=== PATIENT | female | born 1960 | race Caucasian/White ===

== ENCOUNTER 2018-06-09 13:08 | Observation (INO) ==
[2018-06-09 13:44] LABS: Baso # (Auto) 0.1 th/mm3 (0.0-0.2); Baso % (Auto) 1.9 % (0.0-2.0); Eos # (Auto) 0.1 th/mm3 (0.0-0.4); Eos % (Auto) 1.3 % (0.0-4.0); Hematocrit 41.2 % (35.0-46.0); Hemoglobin 13.1 gm/dL (11.6-15.3); Lymph # (Auto) 2.5 th/mm3 (1.0-4.8); Lymph % (Auto) 55.4 % (9.0-44.0); Mean Corpuscular HGB Conc 31.8 % (32.0-36.0); Mean Corpuscular Hemoglobin 28.3 pg (27.0-34.0); Mean Corpuscular Volume 88.9 fL (80.0-100.0); Mean Platelet Volume 7.5 fL (7.0-11.0); Mono # (Auto) 0.2 th/mm3 (0.0-0.9); Mono % (Auto) 4.6 % (0.0-8.0); Neut # (Auto) 1.7 th/mm3 (1.8-7.7); Neut % (Auto) 36.8 % (16.0-70.0); Platelet Count 180 th/mm3 (150-450); Red Blood Count 4.64 mil/mm3 (4.00-5.30); Red Cell Distribution Width 13.1 % (11.6-17.2); White Blood Count 4.6 th/mm3 (4.0-11.0)
[2018-06-09 13:56] LABS: Chloride 104 meq/L (98-107); Potassium 3.5 meq/L (3.5-5.1); Sodium 138 meq/L (136-145)
[2018-06-09 13:59] LABS: Albumin 3.9 g/dL (3.4-5.0); Anion Gap 9 meq/L (5-15); Calcium 9.1 mg/dL (8.5-10.1)
[2018-06-09 14:00] LABS: Blood Urea Nitrogen 15 mg/dL (7-18); Glucose,Random 72 mg/dL (74-106)
[2018-06-09 14:02] LABS: Alanine Aminotransferase 28 U/L (10-53)
[2018-06-09 14:03] LABS: Aspartate Aminotransferase 27 U/L (15-37); Glomerular Filtration Rate 51 mL/min (>89)
[2018-06-09 14:05] LABS: Alkaline Phosphatase 70 U/L (45-117); Creatine Kinase 116 U/L (26-192)
[2018-06-09 14:13] LABS: Thyroid Stimulating Hormone 0.318 uIU/mL (0.358-3.740)
[2018-06-09 14:29] LABS: Activated Partial Thrombo Time 24.2 sec (24.3-30.1); INR 1.1 Ratio; Prothrombin Time 11.1 sec (9.8-11.6)
--- NOTE | 2018-06-09 16:02 | ED ---
HPI General Chief complaint: Altered Mental Status Stated complaint: Altered Mental Status History of Present Illness HPI narrative: 58-year-old female history of multiple sclerosis here for evaluation of altered mental status. Patient was brought by EVAC for altered mental status, her sister states that she has been trying to call her but she did not get any response, she stopped by her house this morning, patient open the door for her but patient was "not herself". Patient was not answering the question properly, she was not oriented to time or place when she was evaluated by EVAC. When she arrived in the ER patient was oriented to time and place, confused, lethargic but able to answer questions properly. She has no weakness in her arms or legs, no slurred speech. Side note: Pt sister arrived at the ER, she says that patient was not herself when she saw her this AM, was having " slow response" to her questions, weak, slow gait. No fall or chest pain or SOB. Related Data Home Medications Medication Instructions Recorded Confirmed atorvastatin [Lipitor] 40 mg PO DAILY 06/09/18 06/09/18 baclofen 10 mg PO BID 06/09/18 06/09/18 conjugated estrogens [Premarin] 0.3 mg PO DAILY 06/09/18 06/09/18 cyclobenzaprine 10 mg PO DAILY 06/09/18 06/09/18 dimethyl fumarate [Tecfidera] 240 mg PO BID 06/09/18 06/09/18 gabapentin 300 mg PO TID 06/09/18 06/09/18 prednisone 20 mg PO DAILY 06/09/18 06/09/18 primidone 50 mg PO Q12H 06/09/18 06/09/18 topiramate 300 mg PO DAILY 06/09/18 06/09/18 venlafaxine [Effexor XR] 150 mg PO BID 06/09/18 06/09/18 Allergies Allergy/AdvReac Type Severity Reaction Status Date / Time No Known Allergies Allergy Verified 06/09/18 16:38 Review of Systems ROS: all other systems reviewed are negative [facility] Medical History Medical History Multiple sclerosis (Acute) Surgical history unknown (Acute) Family History Family History Other Hypertension Social History Social History Substance History: No History of Abuse Second Hand Smoke Exposure: No Smoking Status: Former smoker Tobacco Type: Cigarettes How Often Do You Have a Drink Containing Alcohol: Never Recent Travel in [facility] within the Last 8 Weeks: No Recent Out of Country Travel within the Last 8 Weeks: No Immunization History Tetanus Immunization: Unable to Assess Hx Influenza Vaccine This Season: Unable to Assess Exam Narrative Exam Narrative: GENERAL: Alert and 2 no acute distress. SKIN: Focused skin assessment warm/dry. HEAD: Atraumatic. Normocephalic. EYES: Pupils equal and round. No scleral icterus. No injection or drainage. ENT: No nasal bleeding or discharge. Mucous membranes pink and moist. NECK: Trachea midline. No JVD. CARDIOVASCULAR: Regular rate and rhythm. No murmur appreciated. RESPIRATORY: No accessory muscle use. Clear to auscultation. Breath sounds equal bilaterally. GASTROINTESTINAL: Abdomen soft, non-tender, nondistended. Hepatic and splenic margins not palpable. MUSCULOSKELETAL: No obvious deformities. No clubbing. No cyanosis. No edema. NEUROLOGICAL: Awake and alert. No obvious cranial nerve deficits. Motor grossly within normal limits. Normal speech. PSYCHIATRIC: Appropriate mood and affect; insight and judgment normal. Course Initial Documented Vital Signs Temperature 97.4 F L 06/09/18 13:28 Pulse Rate 99 H 06/09/18 13:28 Respiratory Rate 16 06/09/18 13:28 Blood Pressure 106/57 L 06/09/18 13:28 Pulse Oximetry 97 06/09/18 13:28 Last Documented Vital Signs Temperature 98.6 F 06/12/18 15:58 Pulse Rate 96 H 06/12/18 15:58 Respiratory Rate 18 06/12/18 15:58 Blood Pressure 113/76 06/12/18 15:58 Pulse Oximetry 98 06/12/18 15:58 Medical Decision Making [facility] Narrative Medical decision making narrative: 58-year-old female here for evaluation of altered mental status, I reevaluated the patient, her condition seems to be improving, sister at the bedside states she saw her talking to her boyfriend and she was normal when she was on the phone, I spoke with her boyfriend on the phone and he states that she always sounds normal to him, he did not notice any change in her condition for the last few weeks although the sister states that she noticed a difference in her condition. Unclear to me if this is a psychiatric condition versus TIA versus MS exacerbation. I believe the patient would benefit from admission for neurological and possible psychiatric evaluation. Medical Screen Exam Complete: Yes Emergency Medical Condition: Yes Lab Data Result diagrams: 06/09/18 13:35 06/09/18 13:35 Lab Results 06/09/18 06/09/18 06/09/18 Range/Units 13:35 13:35 13:35 CBC w Diff Auto diff final WBC 4.6 (4.0-11.0) th/mm3 RBC 4.64 (4.00-5.30) mil/mm3 Hgb 13.1 (11.6-15.3) gm/dL Hct 41.2 (35.0-46.0) % MCV 88.9 (80.0-100.0) fL MCH 28.3 (27.0-34.0) pg MCHC 31.8 L (32.0-36.0) % RDW 13.1 (11.6-17.2) % Plt Count 180 (150-450) th/mm3 MPV 7.5 (7.0-11.0) fL Neut % (Auto) 36.8 (16.0-70.0) % Lymph % (Auto) 55.4 H (9.0-44.0) % Alexander % (Auto) 4.6 (0.0-8.0) % Eos % (Auto) 1.3 (0.0-4.0) % Baso % (Auto) 1.9 (0.0-2.0) % Neut # (Auto) 1.7 L (1.8-7.7) th/mm3 Lymph # (Auto) 2.5 (1.0-4.8) th/mm3 Alexander # (Auto) 0.2 (0.0-0.9) th/mm3 Eos # (Auto) 0.1 (0.0-0.4) th/mm3 Baso # (Auto) 0.1 (0.0-0.2) th/mm3 WBC Differential . Differential Comment . ESR (0-30) mm/hr PT 11.1 (9.8-11.6) sec INR 1.1 Ratio APTT 24.2 L (24.3-30.1) sec Sodium 138 (136-145) meq/L Potassium 3.5 (3.5-5.1) meq/L Chloride 104 (98-107) meq/L Carbon Dioxide 25.0 (21.0-32.0) meq/L Anion Gap 9 (5-15) meq/L BUN 15 (7-18) mg/dL Creatinine 1.10 H (0.50-1.00) mg/dL Estimated GFR 51 L (>89) mL/min POC Glucose (68-110) mg/dl Random Glucose 72 L (74-106) mg/dL Lactic Acid (0.4-2.0) mmol/L Calcium 9.1 (8.5-10.1) mg/dL Total Bilirubin 0.3 (0.2-1.0) mg/dL AST 27 (15-37) U/L ALT 28 (10-53) U/L Alkaline Phosphatase 70 (45-117) U/L Total Creatine Kinase 116 (26-192) U/L Troponin I Less than 0.02 L (0.02-0.05) ng/mL C-Reactive Protein (0.00-0.30) mg/dL Total Protein 7.0 (6.4-8.2) g/dL Albumin 3.9 (3.4-5.0) g/dL TSH 0.318 L (0.358-3.740) uIU/mL Ur Collection Type Urine Color (Yellw/Straw) Urine Clarity (Clear) Urine pH (5.0-8.5) Ur Specific [place] (1.002-1.035) Urine Protein (Neg-Trace) mg/dL Urine Glucose (UA) (Negative) mg/dL Urine Ketones (Negative) mg/dL Urine Occult Blood (Negative) Urine Nitrate (Negative) Urine Bilirubin (Negative) Urine Urobilinogen (Less than 2) mg/dL Ur Leukocyte Esterase (Negative) Urine RBC (0-3) /hpf Urine WBC (0-5) /hpf Ur Squamous Epith Cells (0-5) /hpf Urine Bacteria (None) /hpf Micro UA Comment Urine Culture Comments 06/09/18 06/09/18 06/09/18 Range/Units 13:35 13:35 13:35 CBC w Diff WBC (4.0-11.0) th/mm3 RBC (4.00-5.30) mil/mm3 Hgb (11.6-15.3) gm/dL Hct (35.0-46.0) % MCV (80.0-100.0) fL MCH (27.0-34.0) pg MCHC (32.0-36.0) % RDW (11.6-17.2) % Plt Count (150-450) th/mm3 MPV (7.0-11.0) fL Neut % (Auto) (16.0-70.0) % Lymph % (Auto) (9.0-44.0) % Alexander % (Auto) (0.0-8.0) % Eos % (Auto) (0.0-4.0) % Baso % (Auto) (0.0-2.0) % Neut # (Auto) (1.8-7.7) th/mm3 Lymph # (Auto) (1.0-4.8) th/mm3 Alexander # (Auto) (0.0-0.9) th/mm3 Eos # (Auto) (0.0-0.4) th/mm3 Baso # (Auto) (0.0-0.2) th/mm3 WBC Differential Differential Comment ESR 2 (0-30) mm/hr PT (9.8-11.6) sec INR Ratio APTT (24.3-30.1) sec Sodium (136-145) meq/L Potassium (3.5-5.1) meq/L Chloride (98-107) meq/L Carbon Dioxide (21.0-32.0) meq/L Anion Gap (5-15) meq/L BUN (7-18) mg/dL Creatinine (0.50-1.00) mg/dL Estimated GFR (>89) mL/min POC Glucose (68-110) mg/dl Random Glucose (74-106) mg/dL Lactic Acid 0.8 (0.4-2.0) mmol/L Calcium (8.5-10.1) mg/dL Total Bilirubin (0.2-1.0) mg/dL AST (15-37) U/L ALT (10-53) U/L Alkaline Phosphatase (45-117) U/L Total Creatine Kinase (26-192) U/L Troponin I (0.02-0.05) ng/mL C-Reactive Protein 0.32 H (0.00-0.30) mg/dL Total Protein (6.4-8.2) g/dL Albumin (3.4-5.0) g/dL TSH (0.358-3.740) uIU/mL Ur Collection Type Urine Color (Yellw/Straw) Urine Clarity (Clear) Urine pH (5.0-8.5) Ur Specific [place] (1.002-1.035) Urine Protein (Neg-Trace) mg/dL Urine Glucose (UA) (Negative) mg/dL Urine Ketones (Negative) mg/dL Urine Occult Blood (Negative) Urine Nitrate (Negative) Urine Bilirubin (Negative) Urine Urobilinogen (Less than 2) mg/dL Ur Leukocyte Esterase (Negative) Urine RBC (0-3) /hpf Urine WBC (0-5) /hpf Ur Squamous Epith Cells (0-5) /hpf Urine Bacteria (None) /hpf Micro UA Comment Urine Culture Comments 06/09/18 06/09/18 Range/Units 16:00 20:12 CBC w Diff WBC (4.0-11.0) th/mm3 RBC (4.00-5.30) mil/mm3 Hgb (11.6-15.3) gm/dL Hct (35.0-46.0) % MCV (80.0-100.0) fL MCH (27.0-34.0) pg MCHC (32.0-36.0) % RDW (11.6-17.2) % Plt Count (150-450) th/mm3 MPV (7.0-11.0) fL Neut % (Auto) (16.0-70.0) % Lymph % (Auto) (9.0-44.0) % Alexander % (Auto) (0.0-8.0) % Eos % (Auto) (0.0-4.0) % Baso % (Auto) (0.0-2.0) % Neut # (Auto) (1.8-7.7) th/mm3 Lymph # (Auto) (1.0-4.8) th/mm3 Alexander # (Auto) (0.0-0.9) th/mm3 Eos # (Auto) (0.0-0.4) th/mm3 Baso # (Auto) (0.0-0.2) th/mm3 WBC Differential Differential Comment ESR (0-30) mm/hr PT (9.8-11.6) sec INR Ratio APTT (24.3-30.1) sec Sodium (136-145) meq/L Potassium (3.5-5.1) meq/L Chloride (98-107) meq/L Carbon Dioxide (21.0-32.0) meq/L Anion Gap (5-15) meq/L BUN (7-18) mg/dL Creatinine (0.50-1.00) mg/dL Estimated GFR (>89) mL/min POC Glucose 87 (68-110) mg/dl Random Glucose (74-106) mg/dL Lactic Acid (0.4-2.0) mmol/L Calcium (8.5-10.1) mg/dL Total Bilirubin (0.2-1.0) mg/dL AST (15-37) U/L ALT (10-53) U/L Alkaline Phosphatase (45-117) U/L Total Creatine Kinase (26-192) U/L Troponin I (0.02-0.05) ng/mL C-Reactive Protein (0.00-0.30) mg/dL Total Protein (6.4-8.2) g/dL Albumin (3.4-5.0) g/dL TSH (0.358-3.740) uIU/mL Ur Collection Type Clean catch Urine Color Yellow (Yellw/Straw) Urine Clarity Clear (Clear) Urine pH 7.0 (5.0-8.5) Ur Specific [place] Less/equal 1.005 (1.002-1.035) Urine Protein Negative (Neg-Trace) mg/dL Urine Glucose (UA) Negative (Negative) mg/dL Urine Ketones 40 H (Negative) mg/dL Urine Occult Blood Negative (Negative) Urine Nitrate Negative (Negative) Urine Bilirubin Negative (Negative) Urine Urobilinogen 0.2 (Less than 2) mg/dL Ur Leukocyte Esterase Moderate H (Negative) Urine RBC 0-3 (0-3) /hpf Urine WBC 9-20 H (0-5) /hpf Ur Squamous Epith Cells 6-10 H (0-5) /hpf Urine Bacteria Few H (None) /hpf Micro UA Comment Culture indicated Urine Culture Comments Culture indicated Imaging Data Radiologist's impression: Head CT 06/09/18 13:31 CONCLUSION: No acute intracranial abnormality is identified. . Head MRI 06/10/18 00:00 CONCLUSION: 1. Scattered areas of abnormal T2 signal on the periventricular white matter most consistent with a demyelinating process such as MS. There is been minimal progression since prior of 12/03/2012. No enhancing plaques are identified. No findings to indicate acute cortical infarct are evident. Discharge Plan Discharge Disposition Patient Disposition: 30 Still Patient Discharge Condition Condition: Stable Discharge Order Discharge Orders: Discharge Order (Routine); Ordered 06/12/18 Ordered By: Aidan Caballero Discharge Details Diagnosis: Altered mental status Physicians Team ED Provider: Herber Waller Primary Care Provider: Rocky Hill Attending Provider: Aidan Caballero Other Providers: Rocky Richard Status ED Status: Left Department Discharge Information Discharge Date/Time: 06/09/18 18:54
[2018-06-09 16:10] LABS: Clarity,Urine Clear (Clear); Color,Urine Yellow (Yellw/Straw); Glucose,Urine (UA) Negative (Negative); Leukocyte Esterase,Urine Moderate (Negative); Nitrite,Urine Negative (Negative); Specific Gravity,Urine Less/Equal 1.005 (1.002-1.035); Urobilinogen,Urine 0.2 mg/dL (Less than 2)
[2018-06-09 16:18] LABS: Bilirubin,Urine Negative (Negative)
[2018-06-09 16:20] LABS: RBC,Urine 0-3 /hpf (0-3)
[2018-06-09 16:21] LABS: Bacteria,Urine Few /hpf
--- NOTE | 2018-06-09 16:23 | CT ---
EXAM DATE: 06/09/2018 3:52 PM EDT AGE/SEX: 58 years / Female INDICATIONS: Altered mental status. CLINICAL DATA: This is the patient's initial encounter. Patient reports that signs and symptoms have been present for 1 day and indicates a pain score of 0/10. MEDICAL/SURGICAL HISTORY: Multiple sclerosis. None. RADIATION DOSE: 60.87 CTDI (mGy) COMPARISON: [facility] – [place], MRI BRAIN W & W/O CONTRAST, 12/03/2012. . TECHNIQUE: CT of the head without contrast. Using automated exposure control and adjustment of the mA and/or kV according to patient size, radiation dose was kept as low as reasonably achievable to ob tain optimal diagnostic quality images. DICOM format image data is available electronically for revi ew and comparison. FINDINGS: Cerebrum: There is mild generalized atrophy and ventricles are normal given the degree of atrophy. M ild periventricular white matter change is present. No midline shift, mass lesion, hemorrhage or acu te infarction. No extraaxial fluid collections are seen. Posterior Fossa: The cerebellum and brainstem demonstrate no acute abnormality. The 4th ventricle is midline. The cerebellopontine angle is within normal limits. Extracranial: The visualized sinuses are clear. Skull: The calvaria is intact. No skull fracture. CONCLUSION: No acute intracranial abnormality is identified. . Electronically signed by: Vinayak Damon MD 06/09/2018 4:22 PM EDT
[2018-06-09] MEDS ORDERED: Acetaminophen 325 MG Tablet PO PRN (17:55)
[2018-06-09] MEDS: MethylPREDNISolone Sod Succinate Inj 40 MG/ML Vial IV.PUSH SCH (20:13)
[2018-06-09] MEDS: Enoxaparin Inj 40 MG/0.4 ML Syringe SQ SCH (20:14)
[2018-06-09] MEDS: Temazepam 15 MG Capsule PO PRN (22:17)
[2018-06-10] MEDS ORDERED: Gadobutrol PF 10 MMOL/10 ML Vial (for RAD) IV.SIG ONE (09:07)
--- NOTE | 2018-06-10 09:51 | MR ---
EXAM DATE: 06/10/2018 9:25 AM EDT AGE/SEX: 58 years / Female INDICATIONS: Altered mental status. CLINICAL DATA: This is the patient's initial encounter. Patient reports that signs and symptoms have been present for 1 day and indicates a pain score of 0/10. MEDICAL/SURGICAL HISTORY: Multiple sclerosis. Hysterectomy. Rotator cuff. COMPARISON: [facility] – [place], [place], MRI BRAIN W & W/O CONTRAST, 12/03/2012. . TECHNIQUE: Multiplanar, multisequence examination of the brain was performed without and with 8 ml Ga davist (gadobutrol) contrast as a single exam dose. FINDINGS: Axial inversion recovery images demonstrate scattered areas of abnormal T2 signal in the periventricu lar white matter. There is no associated contrast enhancement within these lesions. There are areas o f encephalomalacia seen on the T1-weighted images. This is compared back to the patient's previous ex amination of 12/03/2012. There appears to be some minimal interval progression of disease since that ti pr. Primary differential considerations would include a demyelinating process such as multiple sclero sis. The ventricular system is normal in size and configuration. There are no abnormal extra-axial fluid c ollections. No enhancing mass lesion is identified. No findings to indicate acute cortical infarction are seen on the diffusion restricted images. The appearance of the posterior fossa is unremarkable. CONCLUSION: 1. Scattered areas of abnormal T2 signal on the periventricular white matter most consistent with a demyelinating process such as MS. There is been minimal progression since prior of 12/03/2012. No enh ancing plaques are identified. No findings to indicate acute cortical infarct are evident. Electronically signed by: Dustin Choi MD 06/10/2018 9:50 AM EDT
[2018-06-10] MEDS: MethylPREDNISolone Sod Succinate Inj 40 MG/ML Vial IV.PUSH SCH ×2 (10:37→21:41)
[2018-06-10] MEDS: Topiramate 100 MG Tablet PO SCH (11:34)
[2018-06-10] MEDS: DIMETHYL FUMARATE 240 MG PO SCH ×2 (11:39→21:42)
[2018-06-10] MEDS: Venlafaxine XR 75 MG Capsule PO SCH ×2 (11:48→21:42)
[2018-06-10] MEDS: Gabapentin 300 MG Capsule PO SCH ×2 (14:43→17:56)
--- NOTE | 2018-06-10 17:06 | P.HP ---
History of Present Illness Primary Care Physician: Rocky Hill DO History of Present Illness: 58-year-old female with a history of multiple sclerosis and lumbar disc herniations presents to the ER after both she and her friend noticed that she was having difficulty with basic communication. She had a hard time keeping simple facts straight. A difficult time holding a conversation on the phone. She also noted that her legs have been progressively weakening over the last week. In the ER she was found to have a urinary tract infection. She has no focal deficits, did have some abnormal weakness but that is chronic related to the MS. She does have a new twitch-like presentation of both feet when flexing or extending her calves. She denies any nausea vomiting or diarrhea. She denies any chest pain, shortness of breath, irregular rhythms. Review of Systems All other systems reviewed negative except as stated in HPI [facility] - History History Provided By: Patient - Medical History Medical History: Medical History (Last Updated 06/09/18 @ 13:29 by Nicole Melendez RN) Multiple sclerosis Surgical history unknown - Family History Family History: Family History (Last Updated 06/10/18 @ 16:57 by Aidan Caballero MD) Other Hypertension - Tobacco History Second Hand Smoke Exposure: No Tobacco Use In Past 30 Days: No Smoking Status: Never smoker - Alcohol History How Often Do You Have a Drink Containing Alcohol: Monthly or less - Travel History Recent Travel in the [place] Within the Last 8 Weeks: No Recent Travel Out of the Country Within the Last 8 Weeks: No - Immunization History Tetanus Immunization: Unable to Assess Hx Influenza Vaccine This Season: Unable to Assess Medications and Allergies Active Medications: Active Medications Acetaminophen (Tylenol) 650 mg PO Q4H PRN PRN Reason: Temp > 100.4 Al Hydroxide/Mg Hydroxide (Milk Of Magnesia Liq) 30 ml PO Q12H PRN PRN Reason: Mild Constipation Cyclobenzaprine HCl (Flexeril) 10 mg PO DAILY [facility] Last Admin: 06/10/18 11:35 Dose: 10 mg Enoxaparin Sodium (Lovenox Inj) 40 mg SQ Q24H [facility] Last Admin: 06/09/18 20:14 Dose: 40 mg Gabapentin (Neurontin) 300 mg PO TID [facility] Last Admin: 06/10/18 14:43 Dose: 300 mg Ceftriaxone Sodium 1,000 mg/ (Sodium Chloride) 100 mls @ 200 mls/hr IV.SIG Q24H [facility] Last Infusion: 06/10/18 16:55 Dose: Infused Methylprednisolone Sodium Succinate (Solumedrol Inj) 40 mg IV.PUSH Q12HR [facility] Last Admin: 06/10/18 10:37 Dose: 40 mg Oxycodone HCl (Roxicodone) 5 mg PO Q6H PRN PRN Reason: HEADACHE Last Admin: 06/10/18 11:35 Dose: 5 mg Pt's Own: (Dimethyl Fumarate [Tecfidera] 240 Mg) 0 each PO BID [facility] Last Admin: 06/10/18 11:39 Dose: Not Given Temazepam (Restoril) 15 mg PO HS PRN PRN Reason: INSOMNIA Last Admin: 06/09/18 22:17 Dose: 15 mg Topiramate (Topamax) 300 mg PO DAILY [facility] Last Admin: 06/10/18 11:34 Dose: 300 mg Venlafaxine HCl (Effexor Xr) 150 mg PO BID [facility] Last Admin: 06/10/18 11:48 Dose: 150 mg Allergies Allergy/AdvReac Type Severity Reaction Status Date / Time No Known Allergies Allergy Verified 06/09/18 16:38 Home Medications Medication Instructions Recorded Confirmed Type atorvastatin [Lipitor] 40 mg PO DAILY 06/09/18 06/09/18 History baclofen 10 mg PO BID 06/09/18 06/09/18 History conjugated estrogens [Premarin] 0.3 mg PO DAILY 06/09/18 06/09/18 History cyclobenzaprine 10 mg PO DAILY 06/09/18 06/09/18 History dimethyl fumarate [Tecfidera] 240 mg PO BID 06/09/18 06/09/18 History gabapentin 300 mg PO TID 06/09/18 06/09/18 History prednisone 20 mg PO DAILY 06/09/18 06/09/18 History primidone 50 mg PO Q12H 06/09/18 06/09/18 History topiramate 300 mg PO DAILY 06/09/18 06/09/18 History venlafaxine [Effexor XR] 150 mg PO BID 06/09/18 06/09/18 History Exam Vital signs: Vital Signs 06/09/18 17:50 06/09/18 20:00 06/10/18 00:00 Temperature 96.8 F L 96.8 F L Pulse Rate 86 86 93 H Respiratory Rate 16 18 18 Blood Pressure 100/67 113/76 104/64 Pulse Oximetry 98 96 93 L 06/10/18 08:00 06/10/18 12:00 Temperature 97.5 F L 98.0 F Pulse Rate 86 89 Respiratory Rate 18 18 Blood Pressure 119/83 115/84 Pulse Oximetry 100 98 Intake & Output 06/09/18 06/10/18 06/10/18 18:59 06:59 18:59 Intake Total 100 / 100 240 / 240 100 / 100 Balance 100 / 100 240 / 240 100 / 100 Weight 90.718 kg 82.8 kg Intake: IV 100 / 100 100 / 100 Rocephin Inj 1,000 MG In NS Inj 100 / 100 100 / 100 100 ML @ 200 mls/hr IV.SIG Q24H WENDI Rx#:[id number] Oral 240 / 240 Other: # Voids 3 Narrative: GENERAL: AAOx3, no acute distress, adequate nutrition SKIN: Warm and dry, no rashes. HEAD: Atraumatic. Normocephalic. EYES: Pupils equal, round, reactive to light. No scleral icterus. No injection or drainage. ENT: No nasal bleeding or discharge. Moist mucous membranes. Nonerythematous oropharynx. NECK: Trachea midline. No JVD. Thyroid size within normal limits. CARDIOVASCULAR: Regular rate and rhythm. No murmur, no gallops, no rubs. RESPIRATORY: Clear and equal to auscultation bilaterally. No crackles, no wheezes. No accessory muscle use. GASTROINTESTINAL: Abdomen soft, non-tender, nondistended, normal active bowel sounds. Hepatic and splenic margins not palpable. MUSCULOSKELETAL: Extremities without clubbing or cyanosis. No obvious deformities. No edema. NEUROLOGICAL: Awake and alert. No obvious cranial nerve deficits. Motor grossly within normal limits. No focal deficits. 4 out of 5 muscle strength in the arms and legs (chronic from MS). Normal speech. PSYCHIATRIC: Appropriate mood and affect; insight and judgment normal. Results - Labs CBC & Chem 7: 06/09/18 13:35 06/09/18 13:35 Labs: Laboratory Results - last 24 hr 06/09/18 06/09/18 06/09/18 13:35 13:35 20:12 ESR 2 POC Glucose 87 C-Reactive Protein 0.32 H - Imaging Impressions Head MRI 06/10/18 00:00 CONCLUSION: 1. Scattered areas of abnormal T2 signal on the periventricular white matter most consistent with a demyelinating process such as MS. There is been minimal progression since prior of 12/03/2012. No enhancing plaques are identified. No findings to indicate acute cortical infarct are evident. Caprini VTE Risk Assessment Caprini VTE Risk Assessment: Moderate/High Risk (score >= 2) Caprini Risk Assessment Model: Point Value = 1 Point Value = 2 Point Value = 3 Point Value = 5 Age 41-60 Minor surgery BMI > 25 kg/m2 Swollen legs Varicose veins or History of unexplained or recurrent spontaneous Oral contraceptives or hormone replacement Sepsis (< 1 month) Serious lung disease, including pneumonia (< 1 month) Abnormal pulmonary function Acute myocardial infarction Congestive heart failure (< 1 month) History of inflammatory bowel disease Medical patient at bed rest Age 61-74 Arthroscopic surgery Major open surgery (> 45 min) Laparoscopic surgery (> 45 min) Malignancy Confined to bed (> 72 hours) Immobilizing plaster cast Central venous access Age >= 75 History of VTE Family history of VTE Factor V Leiden Prothrombin [id number] Lupus anticoagulant Anticardiolipin antibodies Elevated serum homocysteine Heparin-induced thrombocytopenia Other congenital or acquired thrombophilia Stroke (< 1 month) Elective arthroplasty Hip, pelvis, or leg fracture Acute spinal cord injury (< 1 month) Prophylaxis Regimen: Total Risk Factor Score Risk Level Prophylaxis Regimen 0-1 Low Early ambulation 2 Moderate Order ONE of the following: *Sequential Compression Device (SCD) *Heparin 5000 units SQ BID 3-4 Higher Order ONE of the following medications: *Heparin 5000 units SQ TID *Enoxaparin/Lovenox 40 mg SQ daily (WT < 150 kg, CrCl > 30 mL/min) *Enoxaparin/Lovenox 30 mg SQ daily (WT < 150 kg, CrCl > 10-29 mL/min) *Enoxaparin/Lovenox 30 mg SQ BID (WT < 150 kg, CrCl > 30 mL/min) AND/OR *Sequential Compression Device (SCD) 5 or more Highest Order ONE of the following medications: *Heparin 5000 units SQ TID (Preferred with Epidurals) *Enoxaparin/Lovenox 40 mg SQ daily (WT < 150 kg, CrCl > 30 mL/min) *Enoxaparin/Lovenox 30 mg SQ daily (WT < 150 kg, CrCl > 10-29 mL/min) *Enoxaparin/Lovenox 30 mg SQ BID (WT < 150 kg, CrCl > 30 mL/min) AND *Sequential Compression Device (SCD) Assessment and Plan - Plan Urinary tract infection Likely a primary versus secondary to history of confusion and generalized weakness Continue IV Rocephin Altered mental status with generalized weakness Mental status is improving, as is generalized weakness Consider inflammatory effect on MS and lumbar disc herniations Patient was fairly responsive to a single dose of Solu-Medrol, will repeat and follow clinically h/o multiple sclerosis ESR CRP are within normal limits MRI of the brain is pending Continue with home meds Continue IV Solu-Medrol DVT Prophylaxis Lovenox
[2018-06-10] MEDS: Temazepam 15 MG Capsule PO PRN (21:41)
[2018-06-10] MEDS: Enoxaparin Inj 40 MG/0.4 ML Syringe SQ SCH (21:42)
[2018-06-11] MEDS: MethylPREDNISolone Sod Succinate Inj 40 MG/ML Vial IV.PUSH SCH ×2 (10:12→20:19)
[2018-06-11] MEDS: Topiramate 100 MG Tablet PO SCH (10:13)
[2018-06-11] MEDS: Venlafaxine XR 75 MG Capsule PO SCH ×2 (10:13→20:19)
[2018-06-11] MEDS: DIMETHYL FUMARATE 240 MG PO SCH ×2 (10:14→20:28)
[2018-06-11] MEDS: Gabapentin 300 MG Capsule PO SCH ×3 (10:14→18:42)
--- NOTE | 2018-06-11 15:03 | P.PNIM ---
Subjective Interval history: Patient is about 10-20% improved compared to yesterday. She still has twitching occurring in her feet, still has a deficit of finding certain words. MRI did not show a stroke. Physical Exam Vital signs: Vital Signs 06/10/18 16:00 06/10/18 18:05 06/10/18 20:00 Temperature 98.2 F 97.9 F Pulse Rate 98 H 102 H Respiratory Rate 16 20 Blood Pressure 98/53 L 99/69 L 114/73 Pulse Oximetry 95 96 06/11/18 00:00 06/11/18 08:00 06/11/18 11:10 Temperature 96.6 F L 97.4 F L Pulse Rate 89 85 Respiratory Rate 20 18 18 Blood Pressure 109/71 127/74 Pulse Oximetry 95 98 06/11/18 12:00 Temperature 96.6 F L Pulse Rate 89 Respiratory Rate 18 Blood Pressure 111/68 Pulse Oximetry 99 Intake & Output 06/10/18 06/11/18 06/11/18 18:59 06:59 18:59 Intake Total 1060 / 1060 720 / 720 Balance 1060 / 1060 720 / 720 Weight 82.8 kg 82.7 kg Intake: IV 100 / 100 Rocephin Inj 1,000 MG In NS Inj 100 / 100 100 ML @ 200 mls/hr IV.SIG Q24H WENDI Rx#:[id number] Oral 960 / 960 720 / 720 Other: # Voids 6 2 # Incontinent Bowel Movements 0 Weight On Admission 82.8 kg Narrative: GENERAL: AAOx3, no acute distress SKIN: Warm and dry. No rashes HEAD: Atruamtic, normocephalic. EYES: No scleral icterus. No injection or drainage. ENT: Moist mucous membranes, patent nares, no erythema of oropharynx. NECK: Supple, trachea midline. No JVD or lymphadenopathy. Normal thyroid. CARDIOVASCULAR: Regular rate and rhythm. No murmurs, gallops, or rubs. RESPIRATORY: Breath sounds clear equal bilaterally. No crackles or wheezes. No accessory muscle use. GASTROINTESTINAL: Abdomen soft, non-tender, nondistended, normal active bowel sounds MUSCULOSKELETAL: No cyanosis, or edema. Muscular twitching with flexion and extension of feet NEURO: CN II-XII grossly intact, no focal deficits, no slurring of speech, difficulty finding certain words Results - Labs CBC & Chem 7: 08/16/18 13:35 06/09/18 13:35 Microbiology 06/09/18 16:00 Clean Catch Urine Urine Culture - Preliminary Immature growth - reincubate 06/09/18 13:30 Blood - Peripheral Aerobic Blood Culture - Preliminary No growth in 2 days 06/09/18 13:30 Blood - Peripheral Anaerobic Blood Culture - Preliminary No growth in 2 days 06/09/18 13:35 Blood - Peripheral Aerobic Blood Culture - Preliminary No growth in 2 days 06/09/18 13:35 Blood - Peripheral Anaerobic Blood Culture - Preliminary No growth in 2 days Assessment and Plan - Plan Urinary tract infection Likely a primary versus secondary to history of confusion and generalized weakness Continue IV Rocephin Altered mental status with generalized weakness Mental clarity is improved, she still having difficulty stumbling over certain words Consider inflammatory effect on MS and lumbar disc herniations Only minor improvements compared to yesterday h/o multiple sclerosis ESR CRP are within normal limits MRI of brain shows no stroke, mostly chronic changes, questionable new white patch Continue with home meds Continue IV Solu-Medrol Neurology consult to assist with maximizing treatment plan DVT Prophylaxis Lovenox
[2018-06-11] MEDS: Enoxaparin Inj 40 MG/0.4 ML Syringe SQ SCH (20:18)
[2018-06-11] MEDS: Temazepam 15 MG Capsule PO PRN (21:45)
[2018-06-12 08:19] VITALS: RESP 18
[2018-06-12] MEDS: Venlafaxine XR 75 MG Capsule PO SCH (08:40)
[2018-06-12] MEDS: Topiramate 100 MG Tablet PO SCH (08:40)
[2018-06-12] MEDS: MethylPREDNISolone Sod Succinate Inj 40 MG/ML Vial IV.PUSH SCH (08:41)
[2018-06-12] MEDS: Gabapentin 300 MG Capsule PO SCH ×2 (08:41→13:58)
[2018-06-12] MEDS: DIMETHYL FUMARATE 240 MG PO SCH (08:41)
--- NOTE | 2018-06-12 15:51 | P.DS ---
Date of admission: 06/09/18 17:55 Primary care physician: Rocky Hill DO Brief History from admission: 58-year-old female with a history of multiple sclerosis and lumbar disc herniations presents to the ER after both she and her friend noticed that she was having difficulty with basic communication. She had a hard time keeping simple facts straight. A difficult time holding a conversation on the phone. She also noted that her legs have been progressively weakening over the last week. In the ER she was found to have a urinary tract infection. She has no focal deficits, did have some abnormal weakness but that is chronic related to the MS. She does have a new twitch-like presentation of both feet when flexing or extending her calves. She denies any nausea vomiting or diarrhea. She denies any chest pain, shortness of breath, irregular rhythms. DS: Medications - Discharge Medications Prescriptions: cephalexin [Keflex] 500 mg PO BID 5 Days #10 cap prednisone 20 mg PO BID 5 Days #10 tab DS: Summary Hospital Course: 58-year-old female with history of multiple sclerosis presented to the ER with unsteadiness on her feet and difficulty with certain mental tasks. MRI revealed no stroke but did show chronic changes consistent with MS and a possible new plaque. She feels some improvement since admission. She states that it is crucial for her to go home today and order that she might present for her house sale tomorrow, many papers to sign. I will be sending her home on oral antibiotics and oral prednisone taper. Attempted to consult neurology but after 24 hours nobody has shown up. She is instructed to follow-up with her neurologist as an outpatient to review treatment. - Time Spent with Patient Total time spent providing and/or coordinating discharge services: Less than 30 minutes - Quality: VTE Deep Vein Thrombosis/Pulmonary Embolism Present on Admission: No Exam Vital signs: Vital Signs 06/11/18 20:00 06/12/18 00:00 06/12/18 08:00 Temperature 96.7 F L 97.1 F L 97.3 F L Pulse Rate 107 H 88 76 Respiratory Rate 20 20 18 Blood Pressure 119/72 99/60 L 140/87 Pulse Oximetry 99 93 L 97 06/12/18 09:20 06/12/18 11:57 Temperature 96.3 F L Pulse Rate 94 H Respiratory Rate 18 18 Blood Pressure 136/81 Pulse Oximetry 97 Intake & Output 06/11/18 06/12/18 06/12/18 18:59 06:59 18:59 Intake Total 960 / 960 0 / 0 Balance 960 / 960 0 / 0 Weight 82.9 kg Intake: IV 100 / 100 Rocephin Inj 1,000 MG In NS Inj 100 / 100 100 ML @ 200 mls/hr IV.SIG Q24H WENDI Rx#:[id number] Oral 860 / 860 0 / 0 Other: # Voids 2 1 Date of Last Bowel Movement 06/10/18 # Bowel Movements 0 Results Procedures completed during hospitalization: None Labs on day of discharge: Preliminary micro results at discharge 06/09/18 13:30 Aerobic Blood Culture - Preliminary Blood - Peripheral No growth in 3 days Anaerobic Blood Culture - Preliminary No growth in 3 days 06/09/18 13:35 Aerobic Blood Culture - Preliminary Blood - Peripheral No growth in 3 days Anaerobic Blood Culture - Preliminary No growth in 3 days - Impressions ITS Impressions Head CT 06/09/18 13:31 CONCLUSION: No acute intracranial abnormality is identified. . Head MRI 06/10/18 00:00 CONCLUSION: 1. Scattered areas of abnormal T2 signal on the periventricular white matter most consistent with a demyelinating process such as MS. There is been minimal progression since prior of 12/03/2012. No enhancing plaques are identified. No findings to indicate acute cortical infarct are evident. Discharge Plan - Discharge Disposition Patient Disposition: /Home Health Service - Discharge Condition Condition: Stable - Discharge Order Discharge Orders: Discharge Order (Routine); Ordered 06/12/18 Ordered By: Aidan Caballero - Physicians Team Primary Care Provider: Rocky Hill Attending Provider: Aidan Caballero Other Providers: Rocky Richard MD, PhD
[2018-06-12 15:59] VITALS: BP 113/76; PULSE 96; TEMP 98.6; O2SAT 98
--- NOTE | 2018-06-12 19:06 | MB ---
cc: Rocky Richard MD, PhD DATE: 06/12/2018 REASON FOR CONSULTATION: Multiple sclerosis. HISTORY OF PRESENT ILLNESS: Feli is a very pleasant 58-year-old female with a diagnosis of MS since 2009. Initially, she was treated with Betaseron, Avonex, Rebif, Copaxone, but had difficulty with this. She was placed on Gilenya, but had exacerbations. For the past 5 years, she has been on Tecfidera and has been relatively stable with no exacerbations in a whole year until this last Wednesday when she fairly acutely developed mental status change, not knowing where she was with difficulty formulating words and lower extremity weakness. She presented to the hospital. MRI of the brain is consistent with multiple sclerosis. The patient has been treated with Solu-Medrol 40 mg IV q.12 hours since 06/09/2018 and noticing significant improvement with regard to her mentation as well as lower extremity strength. NEUROLOGICAL EXAMINATION: VITAL SIGNS: Blood pressure 113/76, pulse 96, respirations 18, temperature 98.6 degrees. HIGHER CORTICAL FUNCTION: Presently normal. CRANIAL NERVES: Intact. MOTOR: She has 5/5 strength of all groups in the upper and lower extremities. REFLEXES: Symmetric. IMAGING STUDIES: MRI of the brain shows demyelinating plaques in the white matter consistent with MS. LABORATORY DATA: White count 4600, hemoglobin 13.1, hematocrit 41.2%, platelet count 180,000. Sedimentation rate 2. PT 11.1, INR 1.1, aPTT 24.2. Sodium 138, potassium 3.5, chloride 104, CO2 of 25, BUN 15, creatinine 1.1, GFR 51, glucose 72, AST 27, ALT 28. C-reactive protein 0.32. IMPRESSION: Multiple sclerosis exacerbation, much improved after Solu-Medrol. At this point, the patient is stable neurologically for discharge. Please schedule a followup with me in about 2 weeks in my office. Continue the Tecfidera. Thank you for asking me to see this pleasant patient. Rocky Richard MD, PhD JACQUELIN/ayan , 04:32 PM , 04:38 PM
== END 2018-06-12 15:04 | disposition home health service (06) ==
LOC: PH3 13:08 → PHED 13:08 → PHEDA 17:44 → INTOOBSV 17:44 → PH3 18:51
PROVIDERS: ADMIT Family Medicine; ATTEND Family Medicine